=== PATIENT | female | born 1995 | race African-American/Black ===

== ENCOUNTER 2016-11-12 08:51 | Emergency (ER) | payer BC ==
[~2016-11-12] VITALS: Ht 167.6 cm; Wt 127.0 kg
[2016-11-12 08:57] VITALS: BP 143/97
== END 2016-11-12 11:14 | disposition home or self-care (01) ==
LOC: ER 10:30
DX: H69.81 Other specified disorders of Eustachian tube, right ear (principal)
CPT/HCPCS: 69209; 99283

== ENCOUNTER 2016-11-17 13:40 | Emergency (ER) | payer BC ==
[~2016-11-17] VITALS: Ht 170.2 cm; Wt 127.0 kg
[2016-11-17 14:51] VITALS: BP 140/71
== END 2016-11-17 15:48 | disposition home or self-care (01) ==
LOC: ER 15:05
DX: H61.21 Impacted cerumen, right ear (principal); R03.0 Elevated blood-pressure reading, without diagnosis of hypertension
CPT/HCPCS: 69210; 99284

== ENCOUNTER → 2017-12-01 | Outpatient (CLI) | payer BC ==
[2017-12-01 11:42] LABS: BASOPHILS % 0.4 % (0.0-2.0); EOSINOPHILS % 0.7 % (0.0-5.0); HEMATOCRIT. 36.4 % (36.0-48.0); LYMPHOCYTES % 26.2 % (20.0-50.0); MEAN CORPUSCULAR VOLUME 85.4 fL (81.0-99.0); MEAN PLATELET VOLUME 8.3 fl (7.4-10.4); MONOCYTES % 5.6 % (2.0-8.0); NEUTROPHILS % 67.1 % (40.0-76.0); PLATELET 282 x1000/uL (130-400); RED BLOOD CELL COUNT 4.27 mill/uL (4.2-5.4); RED CELL DISTRIBUTION WIDTH 13.6 % (11.6-14.6)
[2017-12-01 12:07] LABS: CHLORIDE 101 mEq/L (98-107)
[2017-12-01 12:20] LABS: TOTAL IRON BINDING CAPACITY 317 ug/dL (250-450)
[2017-12-01 12:22] LABS: HDL CHOLESTEROL 56 mg/dL (40-59); LDL CHOLESTEROL 107 mg/dL (5-100)
[2017-12-01 12:23] LABS: FOLIC ACID (FOLATE) SERUM 7.9 ng/mL (>5.38)
[2017-12-02 17:14] LABS: CLARITY URINE CLEAR (CLEAR); COLOR URINE YELLOW (YELLOW); KETONES URINE NEGATIVE (NEGATIVE); LEUKOCYTE ESTERASE URINE NEGATIVE (NEGATIVE); NITRITE URINE NEGATIVE (NEGATIVE); OCCULT BLOOD URINE TRACE (NEGATIVE); PROTEIN URINE NEGATIVE (NEGATIVE); SPECIFIC GRAVITY URINE 1.021 (1.005-1.030)
== END | disposition home or self-care (01) ==
LOC: LAB 09:41
PROVIDERS: ATTEND Internal Medicine Geriatric Medicine
DX: Z00.01 Encounter for general adult medical examination with abnormal findings (principal); N39.0 Urinary tract infection, site not specified
CPT/HCPCS: 36415; 80053; 80061; 82306; 82746; 83036; 83540; 83550; 84252; 84443; 85025; 86592; 87077

== ENCOUNTER → 2023-12-03 | Outpatient (CLI) | payer BC ==
[2023-12-03 13:21] LABS: BASOPHILS % 0.3 % (0.0-2.0); EOSINOPHILS % 0.9 % (0.0-5.0); HEMATOCRIT. 36.2 % (36.0-48.0); HEMOGLOBIN. 11.8 g/dL (12.0-16.0); LYMPHOCYTES % 21.1 % (20.0-50.0); MEAN CORPUSCULAR HGB CONC 32.6 g/dL (31.0-37.0); MEAN CORPUSCULAR VOLUME 82.9 fL (81.0-99.0); MEAN PLATELET VOLUME 8.8 fl (7.4-10.4); MONOCYTES % 5.9 % (2.0-8.0); NEUTROPHILS % 71.8 % (40.0-76.0); PLATELET 290 x1000/uL (130-400); RED BLOOD CELL COUNT 4.36 mill/uL (4.2-5.4); RED CELL DISTRIBUTION WIDTH 14.4 % (11.6-14.6)
[2023-12-03 13:23] LABS: CHLORIDE 102 mEq/L (98-107); POTASSIUM 3.5 mEq/L (3.5-5.1); SODIUM 136 mEq/L (136-145)
[2023-12-03 13:24] LABS: CALCIUM 8.9 mg/dL (8.7-10.4); CARBON DIOXIDE 29 mEq/L (21-32)
[2023-12-03 13:29] LABS: CREATININE 0.8 mg/dL (0.6-1.0); GLUCOSE 90 mg/dL (70-105); IRON 39 ug/dL (50-170); TRIGLYCERIDE 62 mg/dL (0-150); URIC ACID 4.6 mg/dL (3.1-7.8)
[2023-12-03 13:30] LABS: LDL CHOLESTEROL 119 mg/dL (5-100); UREA NITROGEN BLOOD 10 mg/dL (9-23)
[2023-12-03 13:31] LABS: ALANINE AMINOTRANSFERASE 18 IU/L (10-49); ALBUMIN 4.3 g/dL (3.2-4.8); ASPARTATE AMINOTRANSFERASE 16 IU/L (<34); BILIRUBIN TOTAL 0.4 mg/dL (0.1-1.0); CHOLESTEROL 170 mg/dL (<200); HDL CHOLESTEROL 49 mg/dL (>65); TOTAL IRON BINDING CAPACITY 406 ug/dl (250-425)
[2023-12-03 13:32] LABS: PROTEIN TOTAL 7.5 g/dL (6.0-8.3); T4 FREE 1.19 ng/dL (0.89-1.76)
[2023-12-03 13:35] LABS: CLARITY URINE CLEAR (CLEAR); COLOR URINE YELLOW (YELLOW); GLUCOSE URINE NEGATIVE (NEGATIVE); KETONES URINE NEGATIVE (NEGATIVE); LEUKOCYTE ESTERASE URINE NEGATIVE (NEGATIVE); NITRITE URINE NEGATIVE (NEGATIVE); OCCULT BLOOD URINE NEGATIVE (NEGATIVE); PH URINE 6.5 (4.5-8.0); PROTEIN URINE NEGATIVE (NEGATIVE); SPECIFIC GRAVITY URINE 1.002 (1.005-1.030); UROBILINOGEN URINE 0.2 E.U./dL (0.2-1.0)
[2023-12-03 13:38] LABS: VITAMIN B12 SERUM 1236 pg/mL (211-911)
[2023-12-03 13:39] LABS: FERRITIN 36 ng/mL (10-291)
[2023-12-03 13:50] LABS: HEPATITIS B SURFACE ANTIGEN NEGATIVE (Negative)
[2023-12-03 14:01] LABS: *AMPHETAMINES SCREEN URINE NEGATIVE (NEGATIVE); *BARBITURATES SCREEN URINE NEGATIVE (NEGATIVE); *BENZODIAZEPINES SCREEN URINE NEGATIVE (NEGATIVE); *COCAINE SCREEN URINE NEGATIVE (NEGATIVE); CANNABINOID URINE SCREEN NEGATIVE (NEGATIVE); ECSTASY MDMA SCREEN URINE NEGATIVE (NEGATIVE); METHADONE URINE SCREEN NEGATIVE (NEGATIVE); OPIATES URINE SCREEN NEGATIVE (NEGATIVE); PHENCYCLIDINE URINE SCREEN NEGATIVE (NEGATIVE)
[2023-12-03 14:11] LABS: HEPATITIS A AB IGM NEGATIVE (Negative)
[2023-12-03 14:12] LABS: HEPATITIS B CORE AB IGM NEGATIVE (Negative); HEPATITIS C AB NON REACTIVE (Neg) (Negative)
[2023-12-03 14:44] LABS: FOLIC ACID (FOLATE) SERUM 10.66 ng/mL (>5.38)
[2023-12-05 09:08] LABS: FOLICLE STIMULATING HORMONE 4.2 mIU/mL (.); T4 THYROXINE 5.8 ug/dL (4.5-12.0); VITAMIN D 25-OH 18.4 ng/mL (30.0-100.0)
== END | disposition home or self-care (01) ==
LOC: LAB 12:17
PROVIDERS: ATTEND Internal Medicine Geriatric Medicine
DX: Z00.01 Encounter for general adult medical examination with abnormal findings (principal)
CPT/HCPCS: 36415; 80053; 80061; 80305; 81003; 82306; 82607; 82728; 82746; 83001; 83036; 83540; 83550; 84436; 84439; 84443; 84479; 84550; 85025; 86592; 86705; 86709; 86735; 86762; 86765; 87340

== ENCOUNTER → 2023-12-04 | Outpatient (CLI) | payer BC ==
[2023-12-07 13:11] LABS: QFT TB GOLD PLUS Negative (Negative); QFT TB1 AG VALUE 0.01 IU/mL (.); QFT TB2 AG VALUE 0.02 IU/mL (.)
== END | disposition home or self-care (01) ==
LOC: LAB 13:51
PROVIDERS: ATTEND Internal Medicine Geriatric Medicine
DX: Z00.01 Encounter for general adult medical examination with abnormal findings (principal)
CPT/HCPCS: 86480

== ENCOUNTER 2024-02-07 11:13 | Emergency (ER) | payer BC ==
[~2024-02-07] VITALS: Ht 170.2 cm; Wt 150.0 kg
[2024-02-07 11:14] VITALS: O2SAT 96
[2024-02-07] MEDS: DEXAMETHASONE 10 MG/ML VIAL PO ONE (12:00)
[2024-02-07 14:56] VITALS: BP 138/93; PULSE 95; RESP 16; TEMP 36.44736; O2SAT 96
== END 2024-02-07 15:00 | disposition home or self-care (01) ==
LOC: ER 11:13
DX: J03.90 Acute tonsillitis, unspecified (principal); I10 Essential (primary) hypertension; Z79.52 Long term (current) use of systemic steroids
CPT/HCPCS: 99283; 87430; 87070; J1100

== ENCOUNTER → 2024-12-16 | Outpatient (CLI) | payer BC ==
[2024-12-16 09:11] LABS: BASOPHILS % 0.3 % (0.0-2.0); EOSINOPHILS % 0.6 % (0.0-5.0); HEMATOCRIT. 36.0 % (36.0-48.0); HEMOGLOBIN. 11.6 g/dL (12.0-16.0); LYMPHOCYTES % 18.1 % (20.0-50.0); MEAN PLATELET VOLUME 9.1 fl (7.4-10.4); MONOCYTES % 8.3 % (2.0-8.0); NEUTROPHILS % 72.7 % (40.0-76.0); PLATELET 299 x1000/uL (130-400); RED BLOOD CELL COUNT 4.51 mill/uL (4.2-5.4); RED CELL DISTRIBUTION WIDTH 14.9 % (11.6-14.6)
[2024-12-16 09:12] LABS: CLARITY URINE CLEAR (CLEAR); COLOR URINE YELLOW (YELLOW); GLUCOSE URINE NEGATIVE (NEGATIVE); KETONES URINE TRACE (NEGATIVE); LEUKOCYTE ESTERASE URINE NEGATIVE (NEGATIVE); NITRITE URINE NEGATIVE (NEGATIVE); OCCULT BLOOD URINE NEGATIVE (NEGATIVE); PH URINE 6.5 (4.5-8.0); PROTEIN URINE TRACE (NEGATIVE); SPECIFIC GRAVITY URINE 1.026 (1.005-1.030); UROBILINOGEN URINE 1.0 E.U./dL (0.2-1.0)
[2024-12-16 09:24] LABS: BACTERIA URINE 2+; RBC URINE 0-2 /hpf (0-2); SQUAMOUS EPITHELIAL CELL URINE 2+ /lpf (RARE/1+); YEAST URINE NONE SEEN
[2024-12-16 09:31] LABS: CREATININE 0.8 mg/dL (0.6-1.0)
[2024-12-16 09:32] LABS: LDL CHOLESTEROL 113 mg/dL (5-100); TRIGLYCERIDE 53 mg/dL (0-150); UREA NITROGEN BLOOD 10 mg/dL (9-23)
[2024-12-16 09:33] LABS: ASPARTATE AMINOTRANSFERASE 14 IU/L (<34)
[2024-12-16 09:34] LABS: BILIRUBIN TOTAL 0.4 mg/dL (0.1-1.0); PROTEIN TOTAL 7.3 g/dL (6.0-8.3)
[2024-12-16 09:36] LABS: FOLIC ACID (FOLATE) SERUM 13.04 ng/mL (>5.38)
[2024-12-16 09:38] LABS: VITAMIN B12 SERUM 576 pg/mL (211-911)
[2024-12-16 10:07] LABS: B-HCG QUANTITATIVE < 1 mIU/mL (<6)
[2024-12-16 10:10] LABS: HEPATITIS A AB IGM NEGATIVE (Negative); HEPATITIS B CORE AB IGM NEGATIVE (Negative)
[2024-12-16 10:11] LABS: HEPATITIS C AB NON REACTIVE (Neg) (Negative)
[2024-12-17 05:10] LABS: ESTRADIOL 47.5 pg/mL (.); FOLICLE STIMULATING HORMONE 6.7 mIU/mL (.); LUTEINIZING HORMONE 20.6 mIU/mL (.); PROLACTIN 26.4 ng/mL (4.8-33.4); T4 THYROXINE 5.6 ug/dL (4.5-12.0); VITAMIN D 25-OH 16.6 ng/mL (30.0-100.0)
== END | disposition home or self-care (01) ==
LOC: LAB 08:11
PROVIDERS: ATTEND Internal Medicine Geriatric Medicine
DX: I10 Essential (primary) hypertension (principal); E66.01 Morbid (severe) obesity due to excess calories; Z00.01 Encounter for general adult medical examination with abnormal findings
CPT/HCPCS: 36415; 80053; 80061; 80074; 81001; 81003; 82306; 82607; 82670; 82728; 82746; 83001; 83002; 83036; 83540; 83550; 84146; 84436; 84443; 84702; 85025; 86592; 86705; 86709; 87340

== ENCOUNTER → 2024-12-22 | Outpatient (CLI) | payer BC | END | disposition home or self-care (01) | LOC: US 07:33 | PROVIDERS: ATTEND Internal Medicine Geriatric Medicine | DX: N91.1 Secondary amenorrhea (principal) | CPT/HCPCS: 76830; 76856 ==

== ENCOUNTER 2025-01-26 18:48 | Emergency (ER) | payer BC ==
[~2025-01-26] VITALS: Ht 167.6 cm; Wt 163.0 kg
[2025-01-26 18:52] VITALS: O2SAT 99
[2025-01-26] MEDS: KETOROLAC 15MG/ML VIAL IV ONE (19:30)
[2025-01-26 20:11] LABS: BASOPHILS % 0.1 % (0.0-2.0); EOSINOPHILS % 0.2 % (0.0-5.0); HEMATOCRIT. 37.5 % (36.0-48.0); HEMOGLOBIN. 11.8 g/dL (12.0-16.0); LYMPHOCYTES % 15.3 % (20.0-50.0); MEAN PLATELET VOLUME 9.2 fl (7.4-10.4); MONOCYTES % 6.4 % (2.0-8.0); NEUTROPHILS % 78.0 % (40.0-76.0); PLATELET 337 x1000/uL (130-400); RED BLOOD CELL COUNT 4.63 mill/uL (4.2-5.4); RED CELL DISTRIBUTION WIDTH 15.3 % (11.6-14.6)
[2025-01-26 20:22] LABS: CREATININE 0.8 mg/dL (0.6-1.0); HCG SCREEN NEGATIVE; UREA NITROGEN BLOOD 11 mg/dL (9-23)
[2025-01-26 20:24] LABS: ASPARTATE AMINOTRANSFERASE 14 IU/L (<34); BILIRUBIN DIRECT < 0.1 mg/dL (<=3.0); PHOSPHORUS 3.0 mg/dL (2.5-4.9); TROPONIN I HIGH SENSITIVITY < 4 ng/L (3.0-34)
[2025-01-26 20:25] LABS: BILIRUBIN TOTAL 0.4 mg/dL (0.1-1.0); PROTEIN TOTAL 8.2 g/dL (6.0-8.3)
[2025-01-26] MEDS: POTASSIUM CHLORIDE 20MEQ TABLET SR PO ONE (20:59)
[2025-01-26] MEDS: SODIUM CHLORIDE 0.9% 1,000 ML IV ONE (21:01)
[2025-01-26 21:49] VITALS: BP 143/86; PULSE 65; RESP 18; TEMP 36.4; O2SAT 99
== END 2025-01-26 21:50 | disposition home or self-care (01) ==
LOC: ER 18:48
DX: R55 Syncope and collapse (principal); G43.909 Migraine, unspecified, not intractable, without status migrainosus; E87.6 Hypokalemia
CPT/HCPCS: 99285; 96374; 80076; 80048; 84703; 83735; 84100; 85025; 84484; 36415; 93005; J1885; J7030